=== PATIENT | female | born 1985 | race Caucasian/White ===

== ENCOUNTER 2017-09-16 15:27 | Inpatient (IN) ==
--- OUTSIDE RECORDS SUMMARY | 2017-09-16 15:38 | External Medical Summary | Continuity of Care Document ---
:1985 Author Organization [facility] Address [address] [place], [place] [address] Phone Care Team Providers Name Role Phone Dereck Castillo MD Unavailable Unavailable Allergies, Adverse Reactions, Alerts Substance Reaction Severity Status codeine severe stomach cramping Unknown Active Medications Medication Instructions Dosage Effective Dates Status Comments (start - stop) acyclovir 400 mg take 1 tablet by 400 MG - Active tablet oral route 3 times every day Tylenol 325 mg take 1 tablet by - Active tablet oral route every 4 hours as needed 27 mg-0.8 take 1 tablet by Not Available - Active mg tablet oral route every day as needed Problems Condition Effective Dates (start - stop) Clinical Status 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 Encounter for suprvsn of normal - , first trimester 13 weeks gestation of - Other viral diseases complicating - , first trimester Encntr screen for infections w sexl - mode of transmiss Encounter for screening for oth - infec/parastc diseases Encounter for test, result - positive Encounter for suprvsn of normal - , first trimester Encounter for screening of - mother 9 weeks gestation of - Hirsutism Irregular Menses Irregular Menses Irregular Menses - Palpitations 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 700 Provider: Van STILES, , first 7 Medical [facility] Box [id number] weeks Center Ever [place], 1522, gestation of Dr Ziggy Kim Bertrand, 120, Medical [facility] [id number], [place], [place]gy 120, [place] [id number] Oj, tel: , [place]. [place], tel: [phone]. [phone] tel:[phone] Associates [facility] Other viral Feb- Ever Referring In Womens diseases [place]. 700 Provider: Van STILES, complicating 7 Medical [facility] Box , first Center Ever [place], 1522, trimesterEncntr , [place] [address] Jerzy, screen for 120, Medical [place], infections w [facility]l [facility] [id number], mode of [place], Ziggy 120, [place] transmissEncounter [id number] Oj, tel: for screening for , [place]. [place] oth infec/parastc tel: [phone]. diseasesEncounter [phone] tel: for test, [id number] result positiveEncounter for suprvsn of normal , first trimesterEncounter for screening of mother9 weeks gestation of [facility] Irregular Menses December- Ever Referring In Womens [place]. 700 Provider: Van STILES, 7 [facility] Ever [place], 1522, Dr Ziggy Kim Bertrand, 120, Medical Oj LEMA, [place] [id number], [place], [place] 120, [place] [id number] Oj, tel: , [place]. [place], tel: [phone]. [id number] tel:[phone] [facility] Irregular Menses Apr-0 Ever In Womens [place]. 700 Health LINSEY, 7 [facility] PO Box Center Manuel, Ziggy Riley, 120, Oj LEMA, [id number], [place], [place] [id number] tel: , . tel: [phone] Ninfa Mcwilliams HirsutismIrregular Apr-0 Ever Referring In Womens Menses 4-201 [place]. 700 Provider: Van STILES, 7 [facility] Manuel Mitchell, , Ziggy Kim Bertrand, 120, Medical O[facility] [id number], [place], [place]gy 120, [place] [id number] Oj, tel: , [place]. [place] tel: [phone]. [phone] tel:[phone] Ninfa Mcwilliams PalpitationsEncntr Roderick-0 Ever Referring In Womens for corporate quality manager exam 3-201 [place]. 700 Provider: Van STILES, (general) (routine) 7 [facility] w abnormal findings [place] [address] Dr Ziggy Kim Bertrand, 120, Medical [facility] [id number], [place], [place]gy 120, [place] [id number] Oj, tel: , . [place] tel: [phone]. 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 700 Provider: Van STILES, w/o abn findings [address] [facility] [address] Ziggy Kim Bertrand, 120, Medical O[facility] [id number], [place], [place]gy 120, [place] [id number] Oj, tel: , . [place] tel: [phone]. [id number] tel:[phone] Ninfa Mcwilliams Fe-2 Ever Referring In Womens 0-201 [place]. 700 Provider: Van STILES, 4 [facility] Box [place] Manuel Mitchell, Ziggy Riley, 120, Medical Oj LEMA, [place] [id number], [place], Ziggy 120, [place] [id number] Oj, tel: , . [place], [address] tel: [phone]. [id number] tel:[phone] Family History Family Member Diagnosis Age At Onset Mother Diabetes mellitus Paternal Grandfather Cardiovascular Disease Maternal Grandfather Cardiovascular Disease Immunizations Vaccine Date Status Comments Unknown Payers Payer name Insurance type Covered alliance party ID Authorization(s) ANNELISE PATINO [id number] Social History Type Description Quantity Date Captured Alcohol Use Details No Caffeine Use Details Unknown Tobacco Use Status Unknown Smoking Status Never smoker Vital Signs Date / Height Weight BMI Pulse Blood Temperature Respiratory Body Head BMI Time: Rate Pressure Rate Surface Circumference percentile Area 187.50 37.8 lbs 7 mm[Hg] 4:16 kg/m PM eter (2) Chief Complaint And Reason For Visit Unknown Chief Complaint And Reason For Visit Reason For Referral Reason For Referral Unknown Plan Of Care Date Type Action Status Appointment Sierra Huitron BOOKED Future Order: Lab Order Pap Smear With HPV Reflex If ASCUS Ordered ([id number]) Date Type Problem Goal Intervention Status Start Date Unknown. History Of Present Illness Encounter Date Complaint History Of Present Illness This patient has no known history of present illness Functional Status Encounter Date Functional Assessment Cognitive Assessment Unknown Medications Administered Medication Instructions Dosage Effective Dates (start - stop) Status Comments Drug Treatment Unknown Instructions Date Instruction Additional Information toxoplasmosis precautions (cats / raw meat) sexual activity exercise indications for ultrasound influenza vaccine HIV and other routine tests risk factors identified by history anticipated course of care nutrition and weight gain counseling, special diet environmental / work hazards travel use of any medications (including supplements, vitamins, herbs, OTC drugs) seat belt use childbirth classes / hospital facilities hospital registration genetic testing Zika virus assessment & precautions
--- OUTSIDE RECORDS SUMMARY | 2017-09-16 15:38 | External Medical Summary | Continuity of Care Document ---
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 Encounter for suprvsn of normal - , first trimester 13 weeks gestation of - Encounter for suprvsn of normal - , second trimester 16 weeks gestation of - Encounter for suprvsn of normal - , second trimester Encounter For Screening For - Malformations 19 weeks gestation of - Active Procedures Procedure Date OB Visit No Charge Results Test Name Date and Time Measure Units Reference Range Abnormal Flag Comments Unknown Advance Directives Directive Yes / No Effective Date File Name Unknown Encounters Encounter Practice Location Reason(s) Diagnoses Date Provider Care Team Description For Visit Members Ninfa Mcwilliams Encounter for May- Ever Referring In Womens suprvsn of normal 5-201 [place]. 700 Provider: Health PR, , second 7 Medical [place] [address] [email or web address] weeks Center Ever R, 1522, gestation of Ziggy Riley, 120, Medical [facility] [id number], [facility] 120[facility] [place] [id number] Oj, tel:2 , [place]. [place], tel: [phone]. [id number] tel:[phone] Ninfa Mcwilliams Encounter for May- Ever Referring In Womens Ultrasound suprvsn of normal 5-201 [place]. 700 Provider: Health LINSEY, , second 7 Medical [facility] Box trimesterEncounte Center Ever R, 1522, r For Ziggy Riley, Screening For 120, Medical PITA, [id number] [facility] [id number], weeks gestation PITA [facility] 120, [place] [id number] Oj, tel:2 , [place]. [place], tel: [phone]. [id number] tel:[phone] Ninfa Mcwilliams Encounter for Apr- Ever Referring In Womens suprvsn of normal 4-201 [place]. 700 Provider: Health [place], , second 7 Medical [place] PO Box [email or web address] weeks Center Ever R, 1522, gestation of Ziggy Riley, 120, Medical O[facility] [id number], [place], Ziggy 120, [place] [id number] Oj, tel: , [place]. [place], tel: [phone]. [id number] tel:[phone] [facility] Encounter for Mar- Ever Referring In Womens suprvsn of normal [place]. 700 Provider: Health [place], , first 7 [facility] weeks Center Ever R, 1522, gestation of Ziggy Riley, 120, Medical O[facility] [id number], [place], Ziggy 120, [place] [id number] Oj, tel: , [place]. [place], tel: [phone]. [phone] tel:[phone] [facility] Other viral Feb- Ever Referring In Womens diseases - [place]. 700 Provider: Health PA, complicating 7 [facility] , first Center Ever R, 1522, trimesterEncntr [place] Riley, screen for 120, Medical [place], infections w sexl Oj, [place] [id number], mode of [place], [facility] 120, [place] transmissEncounte [id number] Oj, tel: r for screening , [place]. [place], for oth tel:[phone]. infec/parastc [phone] tel: diseasesEncounter [phone] for test, result positiveEncounter for suprvsn of normal , first trimesterEncounte r for screening of mother9 weeks gestation of [facility] Irregular Menses December- Ever Referring In Womens - [place]. 700 Provider: Health LINSEY, 7 [facility] Ever R, 1522, [place] Riley, 120, Medical Oj LEMA, [place] [id number], [place], Z[place]gy 120, [place] [id number] Oj, tel: , [place]. [place], tel: [phone]. [id number] tel:[phone] [facility] Irregular Menses Apr-0 Ever In Womens - [place]. 700 Health LINSEY, 7 [facility] Center 1522, Ziggy Riley, 120, Oj LEMA, [id number], [place], [place] [id number] tel: , [place]. tel: [phone] Ninfa Mcwilliams HirsutismIrregula Apr-0 Ever Referring In Womens r Menses 4-201 [place]. 700 Provider: Van STILES, 7 [facility] PO Box Center Ever [place], 1522, , Ziggy 700 [place], 120, Medical Oj [facility] [id number], [place], [place]iggy 120, [place] [id number] Oj, tel: , [place]. [place], tel: [phone]. [id number] tel:[phone] Associates [facility] PalpitationsEncnt Roderick-0 Ever Referring In Womens r for hair designer exam 3-201 [place]. 700 Provider: Van STILES, (general) 7 [facility] Box (routine) w Center Ever [place], 1522, abnormal findings Dr Ziggy Kim Bertrand, 120, Medical O[facility] [id number], [place], [place]gy 120, [place] [id number] Oj, tel: , [place]. [place], tel: [phone]. 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 700 Provider: Van STILES, (routine) w/o abn 5 [facility] Box findings Center Ever [place], 1522, , [place]ig[place] Kim Bertrand, 120, Medical O[facility] [id number], [place], [place]gy 120, [place] [id number] Oj, tel: , [place]. [place], tel: [phone]. [phone] tel:[phone] Ninfa Mcwilliams Feb-2 Ever Referring In Womens 0-201 [place]. 700 Provider: Van STILES, 4 [facility] PO Box Center Ever [place], 1522, , Ziggy 700 [place], 120, Medical Oj LEMA, [place] [id number], [place], Ziggy 120, [place] [id number] Oj, tel: , [place]. [place] tel: [phone]. [id number] tel:[phone] Family History Family Member Diagnosis Age At Onset Mother Diabetes mellitus Paternal Grandfather Cardiovascular Disease Maternal Grandfather Cardiovascular Disease Immunizations Vaccine Date Status Comments Unknown Payers Payer name Insurance type Covered republican ID Authorization(s) ANNELISE PATINO [id number] Social History Type Description Quantity Date Captured Alcohol Use Details No Caffeine Use Details Unknown Tobacco Use Status Unknown Smoking Status Never smoker Vital Signs Date / Height Weight BMI Pulse Blood Temperature Respiratory Body Head BMI Time: Rate Pressure Rate Surface Circumference percentile Area 185.90 37.5 139/84 2017 lbs 4 mm[Hg] 9:35 kg/m AM eter (2) Chief Complaint And Reason For Visit Unknown Chief Complaint And Reason For Visit Reason For Referral Reason For Referral Unknown Plan Of Care Date Type Action Status Appointment Sierra Huitron BOOKED Future Order: Lab Order Pap Smear With HPV Reflex If ASCUS Ordered (WPMPap1) Future Order: Radiology Order Complete OB Ultrasound > 14 Ordered Weeks ([id number]) Date Type Problem Goal Intervention Status Start [...]
--- OUTSIDE RECORDS SUMMARY | 2017-09-16 15:38 | External Medical Summary | Continuity of Care Document ---
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 Other viral diseases complicating - , first trimester Encntr screen for infections w sexl - mode of transmiss Encounter for screening for oth - infec/parastc diseases Encounter for test, result - positive Encounter for suprvsn of normal - , first trimester Encounter for screening of - mother 9 weeks gestation of - Hirsutism Irregular Menses Irregular Menses Irregular Menses - Palpitations 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 abnormal 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 Active Procedures Procedure Date Urine test Initial OB Visit 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 Infct antign, chlamydia trac, ampl Urine Culture OB Panel With An HIV Neisseria Gonorrhoeae, Amplification Venpnctr fngr/heel/ear stick routne Cult, bactr, ident isolate, urine Cult bactr, aerobic, addl methods Results Test Name Date and Time Measure Units Reference Range Abnormal Flag Comments Panel Description: OBSTETRIC PANEL WHITE BLOOD CELL 10.0 Thousand/uL 3.8-10.8 N COUNT 11:27:00 RED BLOOD CELL 4.23 Million/uL 3.80-5.10 N COUNT 11:27:00 HEMOGLOBIN 13.2 g/dL 11.7-15.5 N 11:27:00 HEMATOCRIT 38.7 % 35.0-45.0 N 11:27:00 MCV 91.5 fL 80.0-100.0 N 11:27:00 MCH 31.2 pg 27.0-33.0 N 11:27:00 MCHC 34.1 g/dL 32.0-36.0 N 11:27:00 RDW 12.5 % 11.0-15.0 N 11:27:00 PLATELET COUNT 412 Thousand/uL 140-400 H 11:27:00 MPV 9.0 fL 7.5-12.5 N 11:27:00 ABSOLUTE 7170 cells/uL 2791-2343 N NEUTROPHILS 11:27:00 ABSOLUTE 2030 cells/uL 850-3900 N LYMPHOCYTES 11:27:00 ABSOLUTE 710 cells/uL 200-950 N MONOCYTES 11:27:00 ABSOLUTE 50 cells/uL 15-500 N EOSINOPHILS 11:27:00 ABSOLUTE 40 cells/uL 0-200 N BASOPHILS 11:27:00 NEUTROPHILS 71.7 % N 11:27:00 LYMPHOCYTES 20.3 % N 11:27:00 MONOCYTES 7.1 % N 11:27:00 EOSINOPHILS 0.5 % N 11:27:00 BASOPHILS 0.4 % N 11:27:00 ANTIBODY SCREEN, NO ANTIBODIES N RBC W/REFL ID, 11:27:00 DETECTED Reference range TITER AND AG No antibodies detected This assay is a screening test for the detection of red blood cell antibodies. The test is not to be used for pretransfusion screening or for the medical management of an alloimmunized . ABO GROUP O 11:27:00 RH TYPE RH(D) 11:27:00 POSITIVE RPR (DX) W/REFL NON-REACTIVE NON-REACTIV N TITER AND 11:27:00 E CONFIRMATORY TESTING HEPATITIS B NON-REACTIVE NON-REACTIV N SURFACE ANTIGEN 11:27:00 E RUBELLA ANTIBODY <0.90 index L Index (IGG) 11:27:00 Interpretation ----- <0.90 Not consistent with Immunity 0.90-0.99 Equivocal > or=1.00 Consistent with Immunity The presence of rubella IgG antibody suggests immunization or past or current infection withrubella virus.Test performed at [facility] [id number] [place] [address]Upyvlaq r: RAMON BORJA DO,MPH Panel Description: HIV 1/2 ANTIGEN/ANTIBODY,FOURTH GENERATION W/RFL HIV NON-REACTIVE NON-REACTIVE N HIV-1 antigen and HIV-1/HIV- 2 antibodies were AG/AB, 11:27:00 notdetected. There is no laboratory evidence of 4TH GEN HIVinfection. PLEASE NOTE: This information has been disclosed toyou from records whose confidentiality may beprotected by state law. If your state requires suchprotection, then the state law prohibits you frommaking any further disclosure of the informationwithout the specific written consent of the personto whom it pertains, or as otherwise permitted by law.A general authorization for the release of medical orother information is NOT sufficient for this purpose. For additional information please refer tohttp://education.Cubicle/faq/VBO979(This link is being provided for informational/educational purposes only.) The performance of this assay has not been clinicallyvalidated in patients less than 2 years old. Test performed at [facility] [address] [id number]: RAMON BORJA DO,MPH Panel Description: Bacteria identified in Urine by Culture CULTURE, URINE, 11:25:00 SEE NOTE A CULTURE, URINE, ROUTINE ROUTINE MICRO NUMBER: [id number] TEST STATUS: FINAL SPECIMEN SOURCE: URINE, CLEAN CATCH SPECIMEN QUALITY: ADEQUATE RESULT: 1,000-10,000 CFU/mL of Group B Streptococcus isolated Beta-hemolytic Streptococci are predictably susceptible to penicillin and other beta-lactams. Susceptibility testing not routinely performed. COMMENT: Erythromycin and clindamycin are not recommended for treatment of urinary tract infections, but clindamycin may be useful for treatment of rectovaginal colonization or infection. Any amount of group B Streptococcus in urine specimens obtained from females is a marker of genital tract colonization. If this patient is , please refer to ACOG guidelines for appropriate screening and management of women. COMMENT: Additional organism(s) less than 10,000 CFU/mL isolated. These organisms, commonly found on external and internal genitalia, are considered colonizers. No further testing performed.REPORT COMMENT:RTest performed at [facility] [address] [id number]: RAMON BORJA DO,MPH Panel Description: CHLAMYDIA/N. GONORRHOEAE RNA, TMA CHLAMYDIA NOT DETECTED NOT DETECTED N TRACHOMATIS RNA, 11:11:00 TMA NEISSERIA NOT DETECTED NOT DETECTED N GONORRHOEAE RNA, 11:11:00 TMA [id number] SEE NOTE This test was 11:11:00 performed using the APTIMA COMBO2 Assay([employer] The analytical performance characteristics of this assay, when used to test SurePath specimens havebeen determined by [place]. Test performed at [facility] [address] [id number]: RAMON BORJA DO,MPH Panel Description: Pap Smear With HPV Reflex If ASCUS Document Advance Directives Directive Yes / No Effective Date File Name Unknown Encounters Encounter Practice Location Reason(s) Diagnoses Date Provider Care Team Description For Visit Members [facility] Other viral Feb- Ever Referring In Womens diseases - [place]. 700 Provider: Van STILES, complicating 7 [facility] , first Center Ever [place], 1522, trimesterEncntr , [place] [address] Jerzy, screen for 120, Medical [place], [facility]l [facility] [id number], mode of [place], [facility] 120, [place] transmissEncounter [id number] Oj, tel: for screening for , [place]. [place], oth infec/parastc tel:[phone]. diseasesEncounter [id number] tel: for test, [id number] result positiveEncounter for suprvsn of normal , first trimesterEncounter for screening of mother9 weeks gestation of Associates Oj Irregular Menses December- Ever Referring In Womens 2-201 [place]. 700 Provider: Van STILES, 7 [facility] Ever [place], 1522, Dr [facility] Kim Bertrand, 120, Medical Oj [facility] [id number], [place], [facility] 120, [place] [id number] Oj, tel: , [place]. [place] tel: [phone]. [id number] tel:[phone] Associates [facility] Irregular Menses Apr-0 Ever In Womens 7-201 [place]. 700 Van STILES, 7 [facility] [address]Dr Ziggy Jerzy, [facility], TXOj [id number], [place], [place] [id number] tel: , [place]. tel: [phone] Associates [facility] HirsutismIrregular Apr-0 Ever Referring In Womens Menses 4-201 [place]. 700 Provider: Van STILES, 7 [facility] Ever [place], 1522, [place] Riley, 120, Medical Oj [facility] [id number], [place], Ziggy 120, [place] [id number] Oj, tel: , [place]. [place] tel: [phone]. [id number] tel:[phone] Ninfa Mcwilliams PalpitationsEncntr Ever Referring In Womens for glove cleaner exam 3-201 [place]. 700 Provider: Van STILES, (general) (routine) 7 [facility] w abnormal findings [place] Manuel Mitchell, , [place], 120, Medical PITA [facility] [id number], [place], [place] 120, [place] [id number] Oj, tel: , . [place], tel: [phone]. 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 700 Provider: Van STILES, w/o abn findings 5 [facility] Manuel Mitchell, , [place], 120, Medical [facility] [id number], [place], Ziggy 120, [place] [id number] Oj, tel: , . [place], tel: [phone]. [id number] tel:[phone] Ninfa Mcwilliams 2 Ever Referring In Womens 0-201 [place]. 700 Provider: Van STILES, 4 [facility] [address] [place] [address] [place], 120, Medical Oj [facility] [id number], [place], Ziggy 120, [place] [id number] Oj, tel: , [facility], tel: [phone]. [id number] tel:[phone] Family History Family Member Diagnosis Age At Onset Mother Diabetes mellitus Paternal Grandfather Cardiovascular Disease Maternal Grandfather Cardiovascular Disease Immunizations Vaccine Date Status Comments Unknown Payers Payer name Insurance type Covered green party ID Authorization(s) DAYAN LEMA [id number] Social History Type Description Quantity Date Captured Alcohol Use Details No Caffeine Use Details coffee 2 cups per day Tobacco Use Status Never smoked tobacco Smoking Status Never smoker Vital Signs Date / Height Weight BMI Pulse Blood Temperature Respiratory Body Head BMI Time: Rate Pressure Rate Surface Circumference percentile Area 187.00 37.7 112/79 -2017 lbs 7 mm[Hg] 10:36 kg/m AM eter (2) 377 9 10:29 kg/m AM eter (2) Chief Complaint And [...]
--- OUTSIDE RECORDS SUMMARY | 2017-09-16 15:38 | External Medical Summary | Continuity of Care Document ---
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 700 Provider: Health [place], , second 7 Medical [place] [address] [id number] weeks Center Ever R, 1522, gestation of Ziggy Riley, 120, Medical [facility] [id number], [facility] 120, [place] [id number] Oj, tel:2 , [place]. [place], tel: [phone]. [id number] tel:[phone] Ninfa Mcwilliams Encounter for May- Ever Referring In Womens Ultrasound suprvsn of normal 5-201 [place]. 700 Provider: Health LINSEY, , second 7 Medical [facility] Box trimesterEncounte Center Ever R, 1522, r For Ziggy Riley, Screening For 120, Medical PITA, [id number] [facility] [id number], weeks gestation PITA [facility] 120, [place] [id number] Oj, tel:2 , [place]. [place], tel: [phone]. [id number] tel:[phone] Ninfa Mcwilliams Encounter for Apr- Ever Referring In Womens suprvsn of normal 4-201 [place]. 700 Provider: Health [place], , second 7 Medical [place] [address] [id number] weeks Center Ever R, 1522, gestation of Ziggy Riley, 120, Medical O[facility] [id number], [place], Ziggy 120, [place] [id number] Oj, tel: , [place]. [place], tel: [phone]. [id number] tel:[phone] Associates Oj Encounter for Mar- Ever Referring In Womens suprvsn of normal [place]. 700 Provider: Health [place], , first 7 [facility] [id number] weeks Center Ever R, 1522, gestation of Ziggy Riley, 120, Medical O[facility] [id number], [place], [place]iggy 120, [place] [id number] Oj, tel: , [place]. [place], tel: [phone]. [id number] tel:[phone] Associates Oj Other viral Feb- Ever Referring In Womens diseases - [place]. 700 Provider: Health [place], complicating 7 [facility] , first Center Ever R, 1522, trimesterEncntr [place] Riley, screen for 120, Medical [place], infections w sexl Oj, [place] [id number], mode of [place], [facility] 120, [place] transmissEncounte [id number] Oj, tel: r for screening , [place]. [place], for oth tel:[phone]. infec/parastc [id number] tel: diseasesEncounter [phone] for test, result positiveEncounter for suprvsn of normal , first trimesterEncounte r for screening of mother9 weeks gestation of Associates Oj Irregular Menses December- Ever Referring In Womens - [place]. 700 Provider: Health LINSEY, 7 [facility] Ever R, 1522, [place]gy Riley, 120, Medical Oj LEMA, [place] [id number], [place], [place]gy 120, [place] [id number] Oj, tel: , [place]. [place], tel: [phone]. [id number] tel:[phone] Associates [facility] Irregular Menses Apr-0 Veer In Womens - [place]. 700 Health LINSEY, 7 [facility] 1522, [place] Riley, 120, Oj LEMA, [id number], [place], [place] [id number] tel: , [place]. tel: [phone] Ninfa Mcwilliams HirsutismIrregula Apr-0 Ever Referring In Womens r Menses 4-201 [place]. 700 Provider: Van STILES, 7 [facility] PO Box Center Ever [place], 1522, , Ziggy 700 [place], 120, Medical Oj [facility] [id number], [place], [place] 120, [place] [id number] Oj, tel: , [place]. [place], tel: [phone]. [id number] tel:[phone] Associates Oj PalpitationsEncnt Roderick-0 Ever Referring In Womens r for urogynecology physician exam 3-201 [place]. 700 Provider: Van STILES, (general) 7 [facility] Box (routine) w Center Ever [place], 1522, abnormal findings Dr Ziggy Kim Bertrand, 120, Medical Oj [facility] [id number], [place], Ziggy 120, [place] [id number] Oj, tel: , [place]. [place], tel: [phone]. [id number] tel:[phone] Ninfa Mcwilliams Encntr for urogynecology physician Nov- Ever Referring In Womens exam (general) 0-201 [place]. 700 Provider: Van STILES, (routine) w/o abn 5 [facility] Box findings Center Ever [place], 1522, , Ziggy Kim Bertrand, 120, Medical Oj [facility] [id number], [place], Z[place]gy 120, [place] [id number] Oj, tel: , [place]. [place], tel: [phone]. [id number] tel:[phone] Ninfa Mcwilliams Feb-2 Ever Referring In Womens 0-201 [place]. 700 Provider: Van STILES, 4 [facility] PO Box Center Ever [place], 1522, , Ziggy 700 [place], 120, Medical Oj LEMA, [place] [id number], [place], Ziggy 120, [place] [id number] Oj, tel: , [place]. [place] tel: [phone]. [id number] tel:[phone] Family History Family Member Diagnosis Age At Onset Mother Diabetes mellitus Paternal Grandfather Cardiovascular Disease Maternal Grandfather Cardiovascular Disease Immunizations Vaccine Date Status Comments Unknown Payers Payer name Insurance type Covered constitution party ID Authorization(s) ANNELISE PATINO [id number] Social History Type Description Quantity Date Captured [...] Complete OB Ultrasound > 14 Ordered Weeks (20655) Date Type Problem Goal Intervention Status Start [...]
--- OUTSIDE RECORDS SUMMARY | 2017-09-16 15:38 | External Medical Summary | Continuity of Care Document ---
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) (routine) w abnormal findings Encounter for suprvsn of normal - , first trimester 13 weeks gestation of - Encounter for suprvsn of normal - , second trimester 16 weeks gestation of - Encounter for suprvsn of normal - , second trimester 19 weeks gestation of - Active Procedures Procedure Date Ultrasound exam of preg uterus, complete Results Test Name Date and Time Measure Units Reference Range Abnormal Flag Comments Unknown Advance Directives Directive Yes / No Effective Date File Name Unknown Encounters Encounter Practice Location Reason(s) Diagnoses Date Provider Care Team Description For Visit Members Ninfa Mcwilliams Encounter for May- Ever Referring In Womens suprvsn of normal 5-201 [place]. 700 Provider: Health LINSE[place], , second 7 Medical [place] PO Box weeks Center Ever R, 1522, gestation of Ziggy Riley, 120, Medical [facility] [id number], [place], Ziggy 120, [place] [id number] Oj, tel:2 , [place]. [place], tel: [phone]. [id number] tel:[phone] Ninfa Mcwilliams Encounter for May- Ever Referring In Womens Ultrasound suprvsn of normal 5-201 [place]. 700 Provider: Health LINSEY, , second 7 Medical [facility] Box trimesterEncounte [place] Ever R, 1522, r For Ziggy Riley, Screening For 120, Medical PITA, [id number] [facility] [id number], weeks gestation PITA [facility] 120, [place] [id number] Oj, tel:2 , [place]. [place], tel: [phone]. [id number] tel:[phone] Ninfa Mcwilliams Encounter for Apr- Ever Referring In Womens suprvsn of normal 4-201 [place]. 700 Provider: Health LINSEY, , second 7 Medical [place] PO Box [id number] weeks Center Ever R, 1522, gestation of Ziggy Riley, 120, Medical Oj LEMA [place] [id number], [place], [place]gy 120, [place] [id number] Oj, tel: , [place]. [place] tel: [phone]. [id number] tel:[phone] Associates Oj Encounter for Mar-2 Ever Referring In Womens suprvsn of normal [place]. 700 Provider: Health [place], , first 7 [facility] [id number] weeks Center Ever [place], 1522, gestation of Ziggy Riley, 120, Medical Oj LEMA, [place] [id number], [place], [place] 120, [place] [id number] Oj, tel: , [place]. [place], tel: [phone]. [id number] tel:[phone] Associates Oj Other viral Feb- Ever Referring In Womens diseases - [place]. 700 Provider: Health LINSEY, complicating 7 [facility] , first Center Ever R, 1522, trimesterEncntr Dr [facility] Kim Bertrand, screen for 120, Medical [place], infections w sexl Oj, [place] [id number], mode of [place], [place] 120, [place] transmissEncounte [id number] Oj, tel: r for screening , [place]. [place] for oth tel:[phone]. infec/parastc [id number] tel: diseasesEncounter [phone] for test, result positiveEncounter for suprvsn of normal , first trimesterEncounte r for screening of mother9 weeks gestation of Associates Oj Irregular Menses December- Ever Referring In Womens - [place]. 700 Provider: Health LINSEY, 7 [facility] Center Ever R, 1522, [place] Riley, 120, Medical Oj LEMA, [place] [id number], [place], [place] 120, [place] [id number] Oj, tel: , [place]. [place] tel: [phone]. [id number] tel:[phone] Associates [facility] Irregular Menses Apr-0 Ever In Womens [place]. 700 Health LINSEY, 7 [facility] Center 1522, [place] Riley, 120, Oj LEMA, [id number], [place], [place] [id number] tel: , [place]. tel: [phone] Associates O[facility] HirsutismIrregula Apr-0 Ever Referring In Womens r Menses 4-201 [place]. 700 Provider: Van STILES, 7 [facility] PO Box Center Ever [place], 1522, , Ziggy 700 [place], 120, Medical Oj [facility] [id number], [place], [place] 120, [place] [id number] Oj, tel: , [place]. [place], tel: [phone]. [id number] tel:[phone] Associates O[facility] PalpitationsEncnt Roderick-0 Ever Referring In Womens r for records officer exam 3-201 [place]. 700 Provider: Van STILES, (general) 7 [facility] Box (routine) w Center Ever [place], 1522, abnormal findings , [place] Kim Bertrand, 120, Medical Oj [facility] [id number], [place], [place] 120, [place] [id number] Oj, tel: , [place]. [place] tel: [phone]. [id number] tel:[phone] Associates O[facility] Encntr for records officer Nov- Ever Referring In Womens exam (general) 0-201 [place]. 700 Provider: Van STILES, (routine) w/o abn 5 [facility] PO Box findings [place] Ever [place], 1522, , [place] Kim Bertrand, 120, Medical Oj [facility] [id number], [place], [place] 120, [place] [id number] Oj, tel: , [place]. [place], tel: [phone]. [id number] tel:[phone] Ninfa Mcwilliams Feb-2 Ever Referring In Womens 0-201 [place]. 700 Provider: Van STILES, 4 [facility] PO Box [place] Ever [place], 1522, , [place] Kim Bertrand, 120, Medical Oj LEMA, [place] [id number], [place], [place] 120, [place] [id number] Oj, tel: , [place]. [place] tel: [phone]. [id number] tel:[phone] Family History Family Member Diagnosis Age At Onset Mother Diabetes mellitus Paternal Grandfather Cardiovascular Disease Maternal Grandfather Cardiovascular Disease Immunizations Vaccine Date Status Comments Unknown Payers Payer name Insurance type Covered democrat ID Authorization(s) ANNELISE PATINO [id number] Social History Type Description Quantity Date Captured Unknown Vital Signs Date / Height Weight BMI Pulse Blood Temperature Respiratory Body Head BMI Time: Rate Pressure Rate Surface Circumference percentile Area Unknown Chief Complaint And Reason For Visit Unknown Chief Complaint And Reason For Visit Reason For Referral Reason For Referral Unknown Plan Of Care Date Type Action Status Appointment [facility] BOOKED Future Order: Radiology Order Complete OB Ultrasound > 14 Ordered Weeks (80169) Future Order: Lab Order Pap Smear With [...]
--- OUTSIDE RECORDS SUMMARY | 2017-09-16 15:39 | External Medical Summary | Continuity of Care Document ---
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 700 Provider: Health LINSEY, , second 7 Medical [place] PO [address] [id number] weeks Center Ever R, 1522, gestation of Ziggy Riley, 120, Medical [facility] [id number], [place], [place]iggy 120, [place] [id number] Oj, tel: , [place]. [place], tel: [phone]. [id number] tel:[phone] Ninfa Mcwilliams Encounter for Ever Referring In Womens suprvsn of normal 2-201 [place]. 700 Provider: Health LINSEY, , first 7 Medical [place] PO Box [id number] weeks Center Ever R, 1522, gestation of Ziggy Riley, 120, Medical Oj [facility] [id number], [place], [place] 120, [place] [id number] Oj, tel: , [place]. [place], tel: [phone]. [id number] tel:[phone] Ninfa Mcwilliams Other viral Feb- Ever Referring In Womens diseases 5-201 [place]. 700 Provider: Health LINSEY, complicating 7 Medical [place] PO Box , first Center Ever R, 1522, trimesterEncntr Dr [place] Kim Bertrand, screen for 120, Medical [place], infections w sexl [facility] [id number], mode of PITA, [facility] 120, [place] transmissEncounter [id number] Oj, tel: for screening for , [place]. [place], oth infec/parastc tel: [phone]. diseasesEncounter [phone] tel: for test, [id number] result positiveEncounter for suprvsn of normal , first trimesterEncounter for screening of mother9 weeks gestation of Associates Oj Irregular Menses May-1 Ever Referring In Womens 2-201 [place]. 700 Provider: Van STILES, 7 [facility] Ever [place], 1522, , Ziggy 700 [place], 120, Medical Oj [facility] [id number], [place], [facility] 120, [place] [id number] Oj, tel: , [place]. [place] tel: [phone]. [id number] tel:[phone] Associates [facility] Irregular Menses Apr-0 Ever In Womens 7-201 [place]. 700 Van STILES, 7 [facility] 152Anette, , [place], 120, Oj LEMA, [id number], [place], [place] [id number] tel:+ , [place]. tel: [phone] Associates [facility] HirsutismIrregular Apr-0 Ever Referring In Womens Menses 4-201 [place]. 700 Provider: Van STILES, 7 [facility] Chuyita Mitchell2, , [place] Kim Bertrand, 120, Medical [facility] [id number], [place], [place]iggy 120, [place] [id number] Oj, tel: , [place], tel:[phone]. [id number] tel:[phone] Associates Oj PalpitationsEncntr Roderick-0 Ever Referring In Womens for sports statistician exam 3- [place]. 700 Provider: Van STILES, (general) (routine) 7 [facility] w abnormal findings Center Chuyita Mitchell2, , [place] Kim Bertrand, 120, Medical Oj [facility] [id number], [place], [place] 120, [place] [id number] Oj, tel: , [place]. [place] tel: [phone]. [id number] tel:[phone] Associates [facility] Encntr for sports statistician exam Nov-1 Ever Referring In Womens (general) (routine) 0-201 [place]. 700 Provider: Van STILES, w/o abn findings 5 [facility] [address], [place] 700 [place], 120, Medical PITA [facility] [id number], [place], [facility] 120, [place] [id number] Oj, tel: , [facility], tel: [phone]. [id number] tel:[phone] Ninfa Mcwilliams Sep- Ever Referring In Womens 0-201 [place]. 700 Provider: [facility], 4 [facility] [address], [place] 700 [place], 120, Medical [facility] [id number], [place], [facility] 120, [place] [id number] Oj, tel: , [facility], tel: [phone]. [id number] tel:[phone] Family History Family Member Diagnosis Age At Onset Mother Diabetes mellitus Paternal Grandfather Cardiovascular Disease Maternal Grandfather Cardiovascular Disease Immunizations Vaccine Date Status Comments Unknown Payers Payer name Insurance type Covered alliance party ID Authorization(s) [facility] [id number] Social History Type Description Quantity Date Captured Alcohol Use Details No Caffeine Use Details Unknown Tobacco Use Status Unknown Smoking Status Never smoker Vital Signs Date / Height Weight BMI Pulse Blood Temperature Respiratory Body Head BMI Time: Rate Pressure Rate Surface Circumference percentile Area 184.00 37.1 lbs 6 mm[Hg] 8:37 kg/m AM eter (2) Chief Complaint And Reason For Visit Unknown Chief Complaint And Reason For Visit Reason For Referral Reason For Referral Unknown Plan Of Care Date Type Action Status Appointment [facility] BOOKED Appointment [facility] BOOKED Future Order: Lab [...]
--- OUTSIDE RECORDS SUMMARY | 2017-09-16 15:39 | External Medical Summary | Continuity of Care Document ---
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) (routine) w abnormal findings Encounter for suprvsn of normal - , first trimester 13 weeks gestation of - Encounter for suprvsn of normal - , second trimester 16 weeks gestation of - Encounter for suprvsn of normal - , second trimester 24 weeks gestation of - Encounter for suprvsn of normal - , second trimester Encounter For Screening For - Malformations 19 weeks gestation of - Encounter for suprvsn of normal - , second trimester 27 weeks gestation of - Encounter for suprvsn of normal - , second trimester 19 weeks gestation of - Encounter for suprvsn of normal - , third trimester 31 weeks gestation of - Active Procedures Procedure Date OB Visit No Charge Results Test Name Date and Time Measure Units Reference Range Abnormal Flag Comments Unknown Advance Directives Directive Yes / No Effective Date File Name Unknown Encounters Encounter Practice Location Reason(s) Diagnoses Date Provider Care Team Description For Visit Members Ninfa Mcwilliams Encounter for Jul- Ever Referring In Womens suprvsn of normal 8-201 [place]. 700 Provider: Health LINSEY, , third 7 Medical [place] [address] [email or web address] weeks [place] Ever R, 1522, gestation of Z[place]gy Riley, 120, Medical [facility] [id number], [place], [facility] 120, [place] [id number] Oj, tel: , [facility], tel: [phone]. [id number] tel:[phone] Ninfa Mcwilliams Encounter for Jul- Ever Referring In Womens suprvsn of normal 4-201 [place]. 700 Provider: Health LINSEY, , third 7 Medical [place] PO Box [email or web address] weeks [place] Ever R, 1522, gestation of Ziggy Rileyta, 120, Medical [facility] [id number], [place], [place] 120, [place] [id number] Oj, tel: , [facility] tel: [phone]. [id number] tel:[phone] Ninfa Mcwilliams Encounter for Nov-3 Ever Referring In Womens suprvsn of normal 0-201 [place]. 700 Provider: Health [place], , second 7 Medical [place] PO Box [email or web address] weeks Center Ever R, 1522, gestation of [place]gy Riley, 120, Medical [facility] [id number], [place], [place] 120, [place] [id number] Oj, tel: , [place]. [place], tel: [phone]. [id number] tel:[phone] Ninfa Mcwilliams Encounter for Nov-0 Ever Referring In Womens suprvsn of normal 3-201 [place]. 700 Provider: Health LINSEY, , second 7 Medical [place] PO Box [email or web address] weeks Center Ever R, 1522, gestation of [place]gy Riley, 120, Medical [facility] [id number], [place], [place] 120, [place] [id number] Oj, tel: , [place] tel: [phone]. [id number] tel:[phone] Ninfa Mcwilliams Encounter for Oct-0 Ever Referring In Womens suprvsn of normal 5-201 [place]. 700 Provider: Health LINSEY, , second 7 Medical [place] PO Box [email or web address] weeks Center Ever R, 1522, gestation of [place]gy Riley, 120, Medical [facility] [id number], [place], [place] 120, [place] [id number] Oj, tel: , [place] tel: [phone]. [id number] tel:[phone] Ninfa Mcwilliams Encounter for Oct-0 Ever Referring In Womens Ultrasound suprvsn of normal 5-201 [place]. 700 Provider: Health LINSEY, , second 7 Medical [place] PO Box trimesterEncounte Center Ever R, 1522, r For Ziggy Riley, Screening For 120, Medical [place], [id number] [facility] [id number], weeks gestation [place] 120, [place] [id number] Oj, tel: , [place] tel: [phone]. [id number] tel:[phone] Ninfa Mcwilliams Encounter for Sep- Ever Referring In Womens suprvsn of normal [place]. 700 Provider: Health LINSEY, , second 7 Medical [place] PO Box [email or web address] weeks Center Ever R, 1522, gestation of Ziggy Riley, 120, Medical [facility] [id number], [place], [facility] 120, [place] [id number] Oj, tel: , [place], tel: [phone]. [id number] tel:[phone] Ninfa Mcwilliams Encounter for Aug- Ever Referring In Womens suprvsn of normal [place]. 700 Provider: Health LINSEY, , first 7 Medical [facility] Box [email or web address] weeks Center Ever R, 1522, gestation of Ziggy Riley, 120, Medical [facility] [id number], [place], [facility] 120, [place] [id number] Oj, tel: , [place], tel: [phone]. [id number] tel:[phone] Associates [facility] Other viral Feb- Ever Referring In Womens diseases [place]. 700 Provider: Van STILES, complicating 7 Medical [facility] Box , first Center Ever R, 1522, trimesterEncntr [place]gy Riley, screen for 120, Medical [place], [facility]l [facility] [id number], mode of [place], [facility] 120, [place] transmissEncounte [id number] Oj, tel: r for screening , [place]. [place] for oth tel: [phone]. infec/parastc [id number] tel: diseasesEncounter [phone] for test, result positiveEncounter for suprvsn of normal , first trimesterEncounte r for screening of mother9 weeks gestation of [facility] Irregular Menses December- Ever Referring In Womens [place]. 700 Provider: Van STILES, 7 Medical [facility] Box Center Ever R, 1522, [place]gy Riley, 120, Medical [facility] [id number], [place], [place] 120, [place] [id number] Oj, tel: , [place] tel:[phone]. [id number] tel:[phone] [facility] Irregular Menses Apr-0 Ever In Womens 7-201 [place]. 700 Health [place], 7 [facility] PO Box Center 1522, , Ziggy Bertrand, 120, DCOj, [id number], [place], [place] [id number] tel:+ , [place]. tel: [phone] [facility] HirsutismIrregula Apr-0 Ever Referring In Womens r Menses 4-201 [place]. 700 Provider: Health [place], 7 [facility] PO Box Center Ever R, 1522, , Ziggy Bertrand, 120, Medical [facility] [id number], [place], [place] 120, [place] [id number] Oj, tel: , [place] tel:[phone]. [id number] tel:[phone] [facility] PalpitationsEncnt Roderick-0 Ever Referring In Womens r for dry room operator exam 3-201 [place]. 700 Provider: Health [place], (general) 7 [facility] PO Box (routine) w Center Ever R, 1522, abnormal findings [place] Riley, 120, Medical [facility] [id number], [place], [place] 120, [place] [id number] Oj, tel: , [place] tel: [phone]. 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 700 Provider: Health [place], (routine) w/o abn 5 [facility] PO Box findings Center Ever R, 1522, , [place] Deal[place], 120, Medical [facility] [id number], [place], [place] 120, [place] [id number] Oj, tel: , . [place] tel:[phone]. [id number] tel:[phone] Ninfa Mcwilliams Sep- Ever Referring In Womens 0-201 [place]. 700 Provider: Health LINSEY, [address] [place] [address] Ever [place], 1522, , Ziggy 700 [place], [facility], [facility], [facility] [id number], [place], [facility] 120, [id number] Oj, tel: , . [place], [address] tel: [phone]. [id number] tel:[phone] Family History Family Member Diagnosis Age At Onset Mother Diabetes mellitus Paternal Grandfather Cardiovascular Disease Maternal Grandfather Cardiovascular Disease Immunizations Vaccine Date Status Comments Unknown Payers Payer name Insurance type Covered republican ID Authorization(s) [facility] [id number] Social History Type Description Quantity Date Captured [...] Sierra Huitron BOOKED Appointment Sierra Huitron BOOKED Appointment Sierra Huitron BOOKED Future Order: Lab Order Pap Smear With HPV Reflex If ASCUS Ordered ([id number]) Future Order: Radiology Order Complete OB Ultrasound > 14 Ordered Weeks ([id number]) Date Type Problem Goal Intervention Status Start [...]
--- OUTSIDE RECORDS SUMMARY | 2017-09-16 15:39 | External Medical Summary | Continuity of Care Document ---
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 700 [facility], 7 [facility] [address] [place] [address], Zig[place] Riley, 120, [place], [place], [id number], [place], [place] [id number] tel: , . tel: [phone] [facility] Other viral Feb-2 Ever Referring In Womens diseases 5-201 [place]. 700 Provider: Van STILES, complicating 7 [facility] , first Center Ever [place], 1522, trimesterEncntr Dr [facility] Kim Bertrand, screen for 120, Medical [place], [facility] [place] , mode of [place], [place] 120, [place] transmissEncounter [id number] Oj, tel: for screening for , [place]. [place] oth infec/parastc tel:[phone]. diseasesEncounter [id number] tel: for test, [id number] result positiveEncounter for suprvsn of normal , first trimesterEncounter for screening of mother9 weeks gestation of [facility] Irregular Menses December- Ever Referring In Womens 2-201 [place]. 700 Provider: Van STILES, 7 [facility] Ever [place] 1522, [facility] Kim Bertrand, 120, Medical [address] [id number], [place], [place] 120, [place] [id number] Oj, tel: , [place]. [place], tel: [phone]. [id number] tel:[phone] [facility] Irregular Menses Apr-0 Ever In Womens 7-201 [place]. 700 Health LINSEY, 7 [facility] Box [place] [address], [place] Riley, 120, Oj LEMA, , [place], [place] [id number] tel: , [place]. tel: [phone] Ninfa Mciwlliams HirsutismIrregular Apr-0 Ever Referring In Womens Menses 4-201 [place]. 700 Provider: Van STILES, 7 [facility] [address], [place] 700 [place], 120, Medical [facility] [place] [id number], [place], [facility] 120, [place] [id number] Oj, tel: , [place]. [place], tel: [phone]. [id number] tel:[phone] Ninfa Mcwilliams PalpitationsEncntr Roderick-0 Ever Referring In Womens for acoustic sensor operator exam 3-201 [place]. 700 Provider: Van STILES, (general) (routine) 7 [facility] w abnormal findings [place] [address], [place] 700 [place], 120, Medical [facility] [place] [id number], [place], [facility] 120, [place] [id number] Oj, tel: , [place], tel: [phone]. 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 700 Provider: Van STILES, w/o abn findings 5 [facility] [address], [place] 700 [place], 120, Medical [facility] [id number], [place], [facility] 120, [place] [id number] Oj, tel: , [place]. [place], tel: [phone]. [id number] tel:[phone] Ninfa Mcwilliams Sep-2 Ever Referring In Womens 0-201 [place]. 700 Provider: Van STILES, 4 [facility] [address] [place] 700 [place], 120, Medical O[facility] [id number], [place], [place] 120, [place] [id number] Oj, tel: , . [place] tel: [phone]. [id number] tel:[phone] Family History Family Member Diagnosis Age At Onset Mother Diabetes mellitus Paternal Grandfather Cardiovascular Disease Maternal Grandfather Cardiovascular Disease Immunizations Vaccine Date Status Comments Unknown Payers Payer name Insurance type Covered constitution party ID Authorization(s) ANNELISE PATINO [id number] Social History Type Description Quantity Date Captured [...]
--- OUTSIDE RECORDS SUMMARY | 2017-09-16 15:39 | External Medical Summary | Continuity of Care Document ---
:1985 Author Organization [facility] Allergies Active Description Code Type Severity Reaction Onset Reported/ Identified Relationship Clinical to Patient Status Yes codeine 1550 1 N/A severe stomach cramping Medications Medication Packaging Start Date Stop Date Route Dosage Sig Tablet 02/02/2015 08/05/2016 NOR-Q-D take 1 tablet by oral route every day JUNE Tablet 06/20/2015 08/05/2016 FE take 1 tablet by oral route every day Tablet 11/05/2016 12/20/2016 CLOMIPHENE take 1 CITRATE Tablet by Oral route every day CD 3-7 Tablet 12/20/2016 02/10/2017 CLOMIPHENE take 1 CITRATE Tablet by Oral route every day CD 3-7 Tablet 02/10/2017 TYLENOL take 1 tablet by oral route every 4 hours as needed Tablet 02/25/2017 ACYCLOVIR take 1 tablet by oral route 3 times every day Tablet 03/04/2017 03/08/2017 AMOXICILLIN take 1 tablet by ORAL route 3 times every day for 7 days Problems Date Dx Attending Type Code Diagnosis Diagnosed By Coded 05/08/2017 Albin Curtis Z34.82 Encounter for suprvsn of normal , second trimester 05/08/2017 Albin Curtis Z36.3 Encounter For Screening For Malformations 05/08/2017 Albin Curtis Z3A.19 19 weeks gestation of 08/18/2017 Maya Thorne O43.123 Velamentous insertion of umbilical cord, third trimester 08/18/2017 Maya Thorne34.83 Encounter for suprvsn of normal , third trimester 08/18/2017 Maya Thorne3A.34 34 weeks gestation of 08/28/2017 Albin Curtis O43.123 Velamentous insertion of umbilical cord, third trimester 08/28/2017 Albin Curtis O44.43 Low Lying Placenta Nos Or W/out Hemorrhage, Third Trimester 08/28/2017 Albin Curtis Z3A.35 35 weeks gestation of Procedures Code Description [place] [address] Ultrasnd 05/08/2017 exam of preg uterus, compl 35539 OB Visit No 08/18/2017 Charge [id number] Ultrasnd 08/28/2017 preg uterus, flwup/repeat Results There is no data. Encounters ACCT No. Visit Discharge Status Pt. Type Provider Facility Loc./Unit Complaint Date/Time [id number] 09/05/2017 09/05/2017 CLS Outpatient Ever, 14:00:00 23:59:59 Albin [place] [id number] 08/28/2017 08/28/2017 CLS Outpatient Ever, 09:00:00 23:59:59 Albin [place]alta [id number] 08/28/2017 08/28/2017 CLS Outpatient Ever, 08:45:00 23:59:59 Albin [place]alta [id number] 08/22/2017 08/22/2017 CLS Outpatient Ever, 08:19:00 23:59:59 Albin [place]alta [id number] 08/18/2017 08/18/2017 CLS Outpatient Thorne, 14:45:00 23:59:59 Maya Cuenca [id number] 07/31/2017 07/31/2017 CLS Outpatient Ever, 09:00:00 23:59:59 Albin [place] [id number] 07/17/2017 07/17/2017 CLS Outpatient Ever, 08:40:00 23:59:59 Albin [place]alta [id number] 07/03/2017 07/03/2017 CLS Outpatient Ever, 15:00:00 23:59:59 Albin Villalta [id number] 06/06/2017 06/06/2017 CLS Outpatient Ever, 15:30:00 23:59:59 Albin [place] [id number] 05/08/2017 05/08/2017 CLS Outpatient Ever, 09:15:00 23:59:59 Albin Villalta [id number] 05/08/2017 05/08/2017 CLS Outpatient Ever, 08:45:00 23:59:59 Albin Villalta [id number] 04/17/2017 04/17/2017 CLS Outpatient Ever, 08:30:00 23:59:59 Albin Villalta [id number] 03/25/2017 03/25/2017 CLS Outpatient Ever, 16:15:00 23:59:59 Albin Villalta [id number] 02/27/2017 02/27/2017 CLS Outpatient Ever, 08:41:00 23:59:59 Albin Villalta [id number] 02/25/2017 02/25/2017 CLS Outpatient Ever, 10:15:00 23:59:59 Albin Villalta [id number] 01/02/2017 01/02/2017 CLS Outpatient Ever, 20:48:00 23:59:59 Albin Villalta [id number] 12/20/2016 12/20/2016 CLS Outpatient Ever, 08:30:00 23:59:59 Albin Villalta [id number] 12/13/2016 12/13/2016 CLS Outpatient Ever, 15:30:00 23:59:59 Albin Villalta [id number] 11/18/2016 11/18/2016 CLS Outpatient Ever, 08:28:00 23:59:59 Albin Villalta [id number] 11/08/2016 11/08/2016 CLS Outpatient Ever, 11:06:00 23:59:59 Albin Villalta [id number] 11/05/2016 11/05/2016 CLS Outpatient Ever, 15:15:00 23:59:59 Albin Villalta [id number] 08/12/2016 08/12/2016 CLS Outpatient Ever, 22:23:00 23:59:59 Albin Villalta [id number] 08/06/2016 08/06/2016 CLS Outpatient Ever, 15:45:00 23:59:59 Albin Villalta [id number] 06/20/2015 06/20/2015 CLS Outpatient Ever, 10:46:00 23:59:59 Albin Villalta [id number] 06/13/2015 06/13/2015 CLS Outpatient Ever, 15:45:00 23:59:59 Albin Villalta [id number] 09/12/2017 Document 14:00:00 Registration [id number] 08/06/2016 Document 15:54:49 Registration
--- OUTSIDE RECORDS SUMMARY | 2017-09-16 15:39 | External Medical Summary | Continuity of Care Document ---
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) (routine) w abnormal findings [...] third trimester 29 weeks gestation of - Active Procedures Procedure Date OB Visit No Charge Hemoglobin count, colorimetric Hematocrit blood count Glucose test Venpnctr fngr/heel/ear stick routne Results Test Name Date and Time Measure Units Reference Range Abnormal Flag Comments Panel Description: Glucose [Mass/volume] in Serum or Plasma --1 hour post 50 g glucose PO GLUCOSE, 136 mg/dL <140 N Test performed at [facility] GESTATIONAL SCREEN 16:05:00 DIAGNOSTICS [id number] (50G)-[address] [place] [address]Rdfptypz: RAMON BORJA DO,MPH Panel Description: HEMOGLOBIN + HEMATOCRIT HEMOGLOBIN 16:05:00 11.6 g/dL 11.7-15.5 L HEMATOCRIT 16:05:00 33.9 % 35.0-45.0 L REPORT COMMENT:FASTING :NOTest performed at [facility] [id number] [place] [address]Kzhbspzu: RAMON BORJA DO,MPH Advance Directives Directive Yes / No Effective Date File Name Unknown Encounters Encounter Practice Location Reason(s) Diagnoses Date Provider Care Team Description For Visit Members Ninfa Mcwilliams Encounter for Ever Referring In Womens suprvsn of normal 4-201 [place]. 700 Provider: Health PA, , third 7 Medical [place] PO Box [email or web address] weeks Center Ever R, 1522, gestation of [place] Riley, 120, [facility] [id number], [place], [place] 120, [place] [id number] Oj, tel:+ , [place]. [place], tel: [phone]. [id number] tel:[phone] Ninfa Mcwilliams Encounter for Nov-3 Ever Referring In Womens suprvsn of normal 0-201 [place]. 700 Provider: Health PA, , second 7 Medical [place] PO Box [id number] weeks Center Ever R, 1522, gestation of [place] Riley, 120, Medical [facility] [id number], [place], [place] 120, [place] [id number] Oj, tel:+ , [place]. [place], tel: [phone]. [id number] tel:[phone] Ninfa Mcwilliams Encounter for Nov-0 Ever Referring In Womens suprvsn of normal 3-201 [place]. 700 Provider: Health LINSEY, , second 7 Medical [place] PO Box [email or web address] weeks Center Ever R, 1522, gestation of [place] Riley, 120, Medical [facility] [id number], [place], [place] 120, [place] [id number] Oj, tel: , [place]. [place], tel: [phone]. [id number] tel:[phone] Ninfa Mcwilliams Encounter for Oct-0 Ever Referring In Womens suprvsn of normal 5-201 [place]. 700 Provider: Health PA, , second 7 Medical [place] PO Box [email or web address] weeks Center Ever R, 1522, gestation of [place] Riley, 120, Medical [facility] [id number], [place], [place] 120, [place] [id number] Oj, tel:+ , [place]. [place] tel: [phone]. [id number] tel:[phone] Ninfa Mcwilliams Encounter for Oct-0 Ever Referring In Womens Ultrasound suprvsn of normal 5-201 [place]. 700 Provider: Health PA, , second 7 Medical [place] PO Box trimesterEncounte Center Ever R, 1522, r For [place]gy Riley, Screening For 120, Medical [place], [id number] [facility] [id number], weeks gestation PITA [place] 120, [place] of [id number] Oj, tel: , [place]. [place], tel: [phone]. [id number] tel:[phone] Ninfa Mcwilliams Encounter for Sep-1 Ever Referring In Womens suprvsn of normal 4-201 [place]. 700 Provider: Health PA, , second 7 Medical [facility] Box [email or web address] weeks Center Ever R, 1522, gestation of Ziggy Riley, 120, Medical [facility] [id number], [place], [place] 120, [place] [id number] Oj, tel: , [place]. [place], tel: [phone]. [id number] tel:[phone] Ninfa Mcwilliams Encounter for Aug-2 Ever Referring In Womens suprvsn of normal 2-201 [place]. 700 Provider: Health LINSEY, , first 7 Medical [facility] Box [id number] weeks Center Ever R, 1522, gestation of [place]gy Riley, 120, Medical [facility] [id number], [place], [place] 120, [place] [id number] Oj, tel: , [place]. [place], tel: [phone]. [id number] tel:[phone] Ninfa Mcwilliams Other viral Renny-2 Ever Referring In Womens diseases 5-201 [place]. 700 Provider: Health LINSEY, complicating 7 Medical [facility] Box , first Center Ever R, 1522, trimesterEncntr [place] Riley, screen for 120, Medical [place], infections w sexl Oj [place] [id number], mode of [place], [place]gy 120, [place] transmissEncounte [id number] Oj, tel: r for screening , [place]. [place], for oth tel: [phone]. infec/parastc [id number] tel: diseasesEncounter [phone] for test, result positiveEncounter for suprvsn of normal , first trimesterEncounte r for screening of mother9 weeks gestation of Associates Oj Irregular Menses May-1 Ever Referring In Womens 2- [place]. 700 Provider: Van STILES, 7 [facility] PO Box Center Ever R, 1522, , [place]ig[place] Kim Bertrand, 120, Medical O[facility] [id number], [place], [facility] 120, [place] [id number] Oj, tel: , [place]. [place] tel: [phone]. [id number] tel:[phone] Associates Oj Irregular Menses Apr-0 Ever In Womens 7- [place]. 700 Van STILES, 7 [facility] PO Box Center 1522, Z[place]gy Riley, 120, Oj LEMA, [id number], [place], [place] [id number] tel: , [place]. tel: [phone] Ninfa Mcwilliams HirsutismIrregula Apr-0 Ever Referring In Womens r Menses 4- [place]. 700 Provider: Van STILES, 7 [facility] Box [place] Ever R, 1522, , [place]ig[place] Kim Bertrand, 120, Medical [place] [facility] [id number], [place], [facility] 120, [place] [id number] Oj, tel: , [place]. [place], tel: [phone]. [id number] tel:[phone] Associates Oj PalpitationsEncnt Roderick-0 Ever Referring In Womens r for cardiograph operator exam 3-201 [place]. 700 Provider: Van STILES, (general) 7 [facility] Box (routine) w Center Ever R, 1522, abnormal findings Dr [place] Kim Bertrand, 120, Medical O[facility] [id number], [place], [facility] 120, [place] [id number] Oj, tel: , [place]. [place] tel: [phone]. [id number] tel:[phone] Associates Oj Encntr for cardiograph operator Nov-1 Ever Referring In Womens exam (general) 0-201 [place]. 700 Provider: Van STILES, (routine) w/o abn 5 Medical [place] PO Box findings Center Ever R, 1522, Dr, [place]iggy 700 [place], 120, Medical [facility] [id number], [place], [facility] 120, [place] [id number] Oj, tel: , [facility] PITA, tel: [phone]. [id number] tel:[phone] Ninfa Mcwilliams Feb-2 Ever Referring In Womens 0-201 [place]. 700 Provider: Van STILES, 4 Medical [place] PO Box Center [address], [place] 700 [place], 120, Medical [facility] [id number], [place], [facility] 120, [place] [id number] Oj, tel: , [facility] PITA, tel: [phone]. [id number] tel:[phone] Family History Family Member Diagnosis Age At Onset Mother Diabetes mellitus Paternal Grandfather Cardiovascular Disease Maternal Grandfather Cardiovascular Disease Immunizations Vaccine Date Status Comments Unknown Payers Payer name Insurance type Covered libertarian ID Authorization(s) DAYAN LEMA [id number] Social History Type Description Quantity Date Captured Alcohol Use Details No Caffeine Use Details Unknown Tobacco Use Status Unknown Smoking Status Never smoker Vital Signs Date / Height Weight BMI Pulse Blood Temperature Respiratory Body Head BMI Time: Rate Pressure Rate Surface Circumference percentile Area 190.50 38.4 125/77 2017 lbs 7 mm[Hg] 3:03 kg/m PM eter (2) Chief Complaint And Reason For Visit Unknown Chief Complaint And Reason For Visit Reason For Referral Reason For Referral Unknown Plan Of Care Date Type Action Status Appointment Sierra Huitron BOOKED Future Order: Lab Order Pap Smear With HPV Reflex If ASCUS Ordered ([id number]) Future Order: Radiology Order Complete OB Ultrasound > 14 Ordered Weeks ([id number]) Date Type Problem Goal Intervention Status Start [...]
--- OUTSIDE RECORDS SUMMARY | 2017-09-16 15:39 | External Medical Summary | Continuity of Care Document ---
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 700 Provider: Van STILES, , second 7 Medical [facility] Box [id number] weeks Center Ever R, 1522, gestation of [place]ig[place] Riley, 120, Medical [facility] [id number], [place], [facility] 120, [place] [id number] Oj, tel: , . [place], tel: [phone]. [id number] tel:[phone] Ninfa Mcwilliams Encounter for Oct-0 Ever Referring In Womens suprvsn of normal 5-201 [place]. 700 Provider: Van STILES, , second 7 Medical [facility] Box [id number] weeks Center Ever R, 1522, gestation of Ziggy Riley, 120, Medical Oj [facility] [id number], [place], [facility] 120, [place] [id number] Oj, tel: , [facility], tel: [phone]. [id number] tel:[phone] Ninfa Mcwilliams Encounter for Oct-0 Ever Referring In Womens Ultrasound suprvsn of normal 5-201 [place]. 700 Provider: Van STILES, , second 7 Medical [place] PO Box trimesterEncounte Center Ever R, 1522, r For [place] Riley, Screening For 120, Medical [place], [id number] [facility] [id number], weeks gestation [place], [facility] 120, [place] of [id number] Oj, tel: , [place]. [place], tel: [phone]. [id number] tel:[phone] Ninfa Mcwilliams Encounter for Sep-1 Ever Referring In Womens suprvsn of normal 4-201 [place]. 700 Provider: Health LINSEY, , second 7 Medical [place] PO Box [id number] weeks Center Ever R, 1522, gestation of Dr [facility] Kim Bertrand, 120, Medical [place], [facility] [id number], [place], [place] 120, [place] [id number] Oj, tel: , [place]. [place], tel:[phone]. [id number] tel:[phone] Ninfa Mcwilliams Encounter for Aug-2 Ever Referring In Womens suprvsn of normal 2-201 [place]. 700 Provider: Van STILES, , first 7 Medical [facility] Box [id number] weeks Center Ever R, 1522, gestation of Dr [facility] Kim Bertrand, 120, Medical [place], [facility] [id number], [place], [facility] 120, [place] [id number] Oj, tel: , [place]. [place], tel:[phone]. [id number] tel:[phone] Ninfa Mcwilliams Other viral Renny-2 Ever Referring In Womens diseases 5-201 [place]. 700 Provider: Van STILES, complicating 7 Medical [place] PO Box , first Center Ever R, 1522, trimesterEncntr Dr [facility] Kim Bertrand, screen for 120, Medical [place], infections w sexl [facility] [id number], mode of [place], [facility] 120, [place] transmissEncounte [id number] Oj, tel: r for screening , [place]. [place], for oth tel:[phone]. infec/parastc [id number] tel: diseasesEncounter [phone] for test, result positiveEncounter for suprvsn of normal , first trimesterEncounte r for screening of mother9 weeks gestation of Ninfa Mcwilliams Irregular Menses May-1 Ever Referring In Womens 2-201 [place]. 700 Provider: Van STILES, 7 [facility] Box [place] Ever [place], 1522, [place] Riley, 120, Medical Oj [facility] [id number], [place], [facility] 120, [place] [id number] Oj, tel: , [place]. [place], tel: [phone]. [id number] tel:[phone] Associates Oj Irregular Menses Apr-0 Ever In Womens 7-201 [place]. 700 Health LINSEY, 7 [facility] Box Center 1522, [place] Riley, 120, Oj LEMA, [id number], [place], [id number] tel: , [place]. tel: [phone] Associates Oj HirsutismIrregula Apr-0 Ever Referring In Womens r Menses 4-201 [place]. 700 Provider: Van STILES, 7 [facility] vEer [place] 152Anette, [place] Riley, 120, Medical Oj [facility] [id number], [place], [facility] 120, [place] [id number] Oj, tel: , [place]. [place], tel: [phone]. 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 700 Provider: Health LINSEY, (general) 7 [facility] Box (routine) w Center Ever [place], 1522, abnormal findings [place] Riley, 120, Medical Oj [facility] [id number], [place], [facility] 120, [place] [id number] Oj, tel: , [place]. [place], tel: [phone]. 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 700 Provider: Health LINSYE, (routine) w/o abn 5 [facility] findings [place] Ever [place], 1522, Z[place]gy Riley, 120, Medical jO [facility] [id number], [place], [facility] 120, [place] [id number] Oj, tel: , . PITA, tel: [phone]. [id number] tel:[phone] Ninfa Mcwilliams Ever Referring In Womens 0-201 [facility] 700 Provider: [facility], 4 [facility] Chuyita Mitchell2Dr, Ziggy 700 [place], 120, [facility] [id number], [place], [facility] 120, [id number] Oj, tel: , [facility], tel: [phone]. [id number] tel:[phone] Family History Family Member Diagnosis Age At Onset Mother Diabetes mellitus Paternal Grandfather Cardiovascular Disease Maternal Grandfather Cardiovascular Disease Immunizations Vaccine Date Status Comments Unknown Payers Payer name Insurance type Covered libertarian ID Authorization(s) [facility] [id number] Social History Type Description Quantity Date Captured Alcohol Use Details No Caffeine Use Details Unknown Tobacco Use Status Unknown Smoking Status Never smoker Vital Signs Date / Height Weight BMI Pulse Blood Temperature Respiratory Body Head BMI Time: Rate Pressure Rate Surface Circumference percentile Area 188.90 38.1 lbs 5 mm[Hg] 3:42 kg/m PM eter (2) Chief Complaint And Reason For Visit Unknown Chief Complaint And Reason For Visit Reason For Referral Reason For Referral Unknown Plan Of Care Date Type Action Status Appointment Sierra Huitron BOOKED Future Order: Lab Order Pap Smear With HPV Reflex If ASCUS Ordered ([id number]) Future Order: Radiology Order Complete OB Ultrasound > 14 Ordered Weeks ([id number]) Date Type Problem Goal Intervention Status Start [...]
--- OUTSIDE RECORDS SUMMARY | 2017-09-16 15:39 | External Medical Summary | Continuity of Care Document ---
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 Provider: Van STILES, umbilical cord, 8 700 [place] PO Box [facility] Medical Ever R, 1522, [facility] 700 [place], alda for suprvsn of Ziggy Riley, normal , 120, Center [id number], third [id number] [place]iggy Mcwilliams 120, [place] weeks gestation Oj LEMA, tel: of [phone] PITA [id number] , [place]. [id number]. tel: tel: [phone] Ninfa Mcwilliams Encounter for Jul- Ever Referring In Womens suprvsn of normal 8-201 [place]. 700 Provider: Van STILES, , third 7 Medical [place] PO Box [id number] weeks Center Ever [place], 1522, gestation of Ziggy Rileyta, 120, Medical Oj [facility] [id number], [place], [facility] 120, [place] [id number] Oj, tel: , [place]. [place], tel: [phone]. [id number] tel:[phone] Ninfa Mcwilliams Encounter for Dec-1 Ever Referring In Womens suprvsn of normal 4-201 [place]. 700 Provider: Health PA, , third 7 Medical [place] PO Box [id number] weeks Center Ever R, 1522, gestation of Ziggy Riley, 120, Medical Oj [facility] [id number], [place], [facility] 120, [place] [id number] Oj, tel: , [place]. [place], tel: [phone]. [id number] tel:[phone] Ninfa Mcwilliams Encounter for Nov-3 Ever Referring In Womens suprvsn of normal 0-201 [place]. 700 Provider: Health LINSEY, , second 7 Medical [place] PO Box [id number] weeks Center Ever R, 1522, gestation of Ziggy Riley, 120, Medical Oj [facility] [id number], [place], [facility] 120, [place] [id number] Oj, tel: , [place]. [place], tel: [phone]. [id number] tel:[phone] Ninfa Mcwilliams Encounter for Nov-0 Ever Referring In Womens suprvsn of normal 3-201 [place]. 700 Provider: Health LINSEY, , second 7 Medical [place] PO Box [id number] weeks Center Ever R, 1522, gestation of Ziggy Riley, 120, Medical Oj [facility] [id number], [place], [facility] 120, [place] [id number] Oj, tel: , [place]. [place], tel: [phone]. [id number] tel:[phone] Ninfa Mcwilliams Encounter for Oct-0 Ever Referring In Womens suprvsn of normal 5-201 [place]. 700 Provider: Health LINSEY, , second 7 Medical [place] PO Box [email or web address] weeks Center Ever R, 1522, gestation of Ziggy Riley, 120, Medical Oj [facility] [id number], [place], [place] 120, [place] [id number] Oj, tel:+ , [place]. [place], tel: [phone]. [id number] tel:[phone] Ninfa Mcwilliams Encounter for Oct-0 Ever Referring In Womens Ultrasound suprvsn of normal 5-201 [place]. 700 Provider: Health LINSEY, , second 7 Medical [place] PO Box trimesterEncounte Center Ever R, 1522, r For [place] Riley, Screening For 120, Medical [place], [id number] [facility] [id number], weeks gestation PITA, [facility] 120, [place] of [id number] Oj, tel: , [place]. [place], tel: [phone]. [id number] tel:[phone] Ninfa Mcwilliams Encounter for Sep-1 Ever Referring In Womens suprvsn of normal 4-201 [place]. 700 Provider: Health LINSEY, , second 7 Medical [place] PO Box weeks Center Ever R, 1522, gestation of Ziggy Riley, 120, Medical Oj [facility] [id number], [place], [place] 120, [place] [id number] Oj, tel: , [place]. [place], tel: [phone]. [id number] tel:[phone] Ninfa Mcwilliams Encounter for Aug-2 Ever Referring In Womens suprvsn of normal 2-201 [place]. 700 Provider: Health LINSEY, , first 7 Medical [place] PO Box weeks Center Ever R, 1522, gestation of Ziggy Riley, 120, Medical Oj [facility] [id number], [place], [place] 120, [place] [id number] Oj, tel: , [place]. [place], tel: [phone]. [id number] tel:[phone] Ninfa Mcwilliams Other viral Renny-2 Ever Referring In Womens diseases 5-201 [place]. 700 Provider: Van STILES, complicating 7 Medical [place] PO Box , first Center Ever R, 1522, trimesterEncntr [place] Kim Bertrand, screen for 120, Medical [place], infections w sexl [facility] [id number], mode of [place], [place] 120, [place] transmissEncounte [id number] Oj, tel: r for screening , [place]. [place], for oth tel: [phone]. infec/parastc [id number] tel: diseasesEncounter [phone] for test, result positiveEncounter for suprvsn of normal , first trimesterEncounte r for screening of mother9 weeks gestation of Associates Oj Irregular Menses December-1 Ever Referring In Womens 2-201 [place]. 700 Provider: Van STILES, 7 [facility] Ever [place], 1522, Dr [facility] Kim Bertrand, 120, Medical Oj [facility] [id number], [place], [facility] 120, [place] [id number] Oj, tel: , [place]. [place], tel: [phone]. [id number] tel:[phone] Associates Oj Irregular Menses Apr-0 Ever In Womens 7-201 [place]. 700 Van STILES, 7 [facility] 1522, [place] Riley, 120, Oj LEMA [id number], [place], [place] [id number] tel: , [place]. tel: [phone] Associates Oj HirsutismIrregula Apr-0 Ever Referring In Womens r Menses 4-201 [place]. 700 Provider: Van STILES, 7 [facility] Ever [place], 1522, Dr [facility] Kim Bertrand, 120, Medical Oj [facility] [id number], [place], [place] 120, [place] [id number] Oj, tel: , [place]. [place], tel: [phone]. 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 700 Provider: Van STILES, (general) 7 [facility] (routine) w Center Ever [place], 1522, abnormal findings [facility] Kim Bertrand, 120, Medical Oj [facility] [id number], [place], [facility] 120, [id number] Oj, tel: , [facility] PITA, tel: [phone]. 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 700 Provider: Van STILES, (routine) w/o abn 5 Medical [place] PO Box findings Center [address], [place] 700 [place], 120, Medical Oj [facility] [id number], [place], [facility] 120, [id number] Oj, tel: , . [place], tel: [phone]. [id number] tel:[phone] Ninfa Mcwilliams Ever Referring In Womens 0-201 [place]. 700 Provider: Van STILES, 4 Medical [place] PO Box Center [address], [facility] 700 [place], 120, Medical Oj [facility] [id number], [place], [facility] 120, [id number] Oj, tel: , [facility], tel: [phone]. [id number] tel:[phone] Family History Family Member Diagnosis Age At Onset Mother Diabetes mellitus Paternal Grandfather Cardiovascular Disease Maternal Grandfather Cardiovascular Disease Immunizations Vaccine Date Status Comments Tdap completed Source: New Immunization Record Payers Payer name Insurance type Covered alliance party ID Authorization(s) [facility] [id number] [facility] [id number] Social History Type Description Quantity Date Captured Alcohol Use Details No Caffeine Use Details Unknown Tobacco Use Status Unknown Smoking Status Never smoker Vital Signs Date / Height Weight BMI Pulse Blood Temperature Respiratory Body Head BMI Time: Rate Pressure Rate Surface Circumference percentile Area 194.50 39.2 lbs 8 mm[Hg] 9:13 kg/m AM eter (2) Chief Complaint And [...] Complete OB Ultrasound > 14 Ordered Weeks ([id number]) Date Type Problem Goal Intervention Status Start [...]
[2017-09-16] MEDS ORDERED: ACETAMINOPHEN 500 MG TABLET PO PRN ×2 (16:15→20:36)
[2017-09-16] MEDS ORDERED: MAG-AL + SIM ORAL LIQUID 30ml PO PRN ×2 (16:15→20:36)
[2017-09-16] MEDS ORDERED: METHYLERGONOVINE 0.2 MG/ML INJECTION IM PRN (16:15)
[2017-09-16] MEDS ORDERED: CARBOPROST 250 MCG/ML INJECTION IM PRN (16:15)
[2017-09-16] MEDS ORDERED: CALCIUM CARBONATE Chewable 500mg TABLET PO PRN ×2 (16:15→20:36)
[2017-09-16] MEDS ORDERED: LR 1,000 ML IV PRN (16:15)
--- OUTSIDE RECORDS SUMMARY | 2017-09-16 16:23 | External Medical Summary | Continuity of Care Document ---
[...] Procedures Code Description [place] [address] Ultrasnd 05/08/2017 exam of preg uterus, compl 54199 OB Visit No 08/18/2017 Charge [id number] Ultrasnd 08/28/2017 preg uterus, flwup/repeat Results There is no data. Encounters ACCT No. Visit Discharge Status Pt. Type Provider Facility Loc./Unit Complaint Date/Time [id number] 09/05/2017 09/05/2017 [facility] Outpatient [facility], 14:00:00 23:59:59 Albin Villalta [id number] 08/28/2017 08/28/2017 CLS Outpatient [facility], 09:00:00 23:59:59 Albin Villalta [id number] 08/28/2017 08/28/2017 CLS Outpatient Ever, 08:45:00 23:59:59 Albin Villalta [id number] 08/22/2017 08/22/2017 CLS Outpatient Ever, 08:19:00 23:59:59 Albin Villalta [id number] 08/18/2017 08/18/2017 CLS Outpatient [facility], 14:45:00 23:59:59 Maya Cuenca [id number] 07/31/2017 07/31/2017 CLS Outpatient Ever, 09:00:00 23:59:59 Albin Villalta [id number] 07/17/2017 07/17/2017 CLS Outpatient Ever, 08:40:00 23:59:59 Albin Villalta [id number] 07/03/2017 07/03/2017 CLS Outpatient Ever, 15:00:00 23:59:59 Albin Villalta [id number] 06/06/2017 06/06/2017 CLS Outpatient Ever, 15:30:00 23:59:59 Albin Villalta [id number] 05/08/2017 05/08/2017 CLS Outpatient Ever, 09:15:00 23:59:59 Albin Villalta [id number] 05/08/2017 05/08/2017 CLS Outpatient Ever, 08:45:00 23:59:59 Albin Villalta [id number] 04/17/2017 04/17/2017 CLS Outpatient Ever, 08:30:00 23:59:59 Albin Villalta [id number] 03/25/2017 03/25/2017 CLS Outpatient Ever, 16:15:00 23:59:59 Albin Villalta [id number] 02/27/2017 02/27/2017 CLS Outpatient Ever, 08:41:00 23:59:59 Albin Villalta [id number] 02/25/2017 02/25/2017 CLS Outpatient Ever, 10:15:00 23:59:59 Albin Villalta [id number] 01/02/2017 01/02/2017 CLS Outpatient Ever, 20:48:00 23:59:59 Albin Villalta [id number] 12/20/2016 12/20/2016 CLS Outpatient Ever, 08:30:00 23:59:59 Albin Villalta [id number] 12/13/2016 12/13/2016 CLS Outpatient Ever, 15:30:00 23:59:59 Albin Villalta [id number] 11/18/2016 11/18/2016 CLS Outpatient Ever, 08:28:00 23:59:59 Albin Villalta [id number] 11/08/2016 11/08/2016 CLS Outpatient Ever, 11:06:00 23:59:59 Albin Villalta [id number] 11/05/2016 11/05/2016 CLS Outpatient Ever, 15:15:00 23:59:59 Albin Villalta [id number] 08/12/2016 08/12/2016 CLS Outpatient Ever, 22:23:00 23:59:59 Albin Villalta [id number] 08/06/2016 08/06/2016 CLS Outpatient Ever, 15:45:00 23:59:59 Albin Villalta [id number] 06/20/2015 06/20/2015 CLS Outpatient Ever, 10:46:00 23:59:59 Albin Villalta [id number] 06/13/2015 06/13/2015 CLS Outpatient Ever, 15:45:00 23:59:59 Albin Villalta [id number] 09/12/2017 Document 14:00:00 Registration [id number] 08/06/2016 Document 15:54:49 Registration
[2017-09-16] MEDS ORDERED: CEFAZOLIN PREMIX (MC ONLY) 2 GM/50 ML BAG IV ONE (16:30)
--- NOTE | 2017-09-16 16:41 | Anesthesia Preoperative Report ---
Anesthesia Epidural/Spinal Rec - Date and Time Date: 09/16/17 Procedure: Labor Epidural Plan: Epidural - Vital Signs /Para: P:1 - Medictaions & Allergies Allergies/Adverse Reactions: Allergies Allergy/AdvReac Type Severity Reaction Status Date / Time codeine AdvReac Intermediate STOMACH Verified 12/17/13 11:18 ACHE - Home Medications Home Medications: Home Medications Medication Instructions Recorded Confirmed Type Docosahexanoic Acid [ Dha] 1 cap PO BID #0 cap 12/08/14 History - Medical History Respiratory: DENIES: Asthma, Bronchitis, Chronic Obstructive Pulmonary Disease (COPD), Dyspnea, Orthopnea, Pulmonary Embolism, Pneumonia, Upper Respiratory Infection, Pulmonary Edema, Sleep Apnea, Tuberculosis, Other Cardiovascular: DENIES: Abnormal EKG, Angina, Arrhythmia, Congestive Heart Failure, Coronary Artery Disease, Heart Murmur, Hypertension, Hypotension, High Cholesterol, Myocardial Infarction, Rheumatic Fever, Valvular Heart Disease, Other Gastrointestional: Reports: Gastroesophageal Reflux Disease DENIES: Obstructive Bowel, Hepatitis, Cirrhosis, Nausea or Vomiting Present, Gastrointestinal Bleeding, Hiatal Hernia, Ulcer, Morbid Obesity, Other Neuro/Musculoskeletal: Denies: HX.MS.OSAR, Back Problems, Cerebrovascular Accident, Depression, Headaches, Loss of Consciousness, Muscle Weakness, Neuromuscular Disorder, Paralysis, Paresthesia, Syncope, Seizures, Other Renal/Endocrine: DENIES: Diabetes Mellitus Type 1, Diabetes Mellitus Type 2, Renal Failure, Dialysis, Thyroid Disease, Weight Loss, Weight Gain, Other Other History: Reports: Now - Surgical History Reproductive Surgery/Treatment: Reports: Other (D & C) Anesthesia Reactions: None - Social History Smoking Status: Never smoker Second Hand Exposure: No Substance Use Type: does not use Alcohol Intake Frequency: does not drink Hx Chewing Tobacco Use: No - Physical Exam Respiratory Exam: lungs clear, bilateral breath sounds equal Cardiovascular Exam: regular rate and rhythm, no murmur - Airway Assessment Mallampati Score: I TMD: 3 Fingerbreadths Overall Assessment: may be difficult mask vent, may be difficult intubation - ASA ASA Score: 2 - Discussion Discussion: Discussed risks/options/alternatives of anesthesia and questions answered. Patient consents. Nursing pain assessment noted. Anesthesia Discussion: spouse Attestation Statement: Prior to the delivery of any anesthetic medication, I examined the patient, developed the plan, obtained the patient's consent and discussed the risk and benefits of the procedure with the patient/guardian.
[2017-09-16] MEDS ORDERED: DiphenhydrAMINE 50 MG/ML INJECTION IVP PRN (16:42)
[2017-09-16] MEDS ORDERED: NALOXONE 0.4 MG/ML INJECTION IVP PRN (16:42)
[2017-09-16] MEDS ORDERED: ONDANSETRON 4 MG/2 ML INJECTION IVP PRN (16:42)
[2017-09-16] MEDS ORDERED: ROPIVACAINE 1% 10MG/ML INJ 200 MG, SUFentanil 50 MCG in NS 100 ML EPI PRN (16:42)
[2017-09-16] MEDS: OXYTOCIN DRIP 30 UNIT/500 ML ML IV SCH (18:02)
--- NOTE | 2017-09-16 19:37 | Labor and Delivery Note ---
DATE OF DELIVERY: 09/16/2017 PREOPERATIVE DIAGNOSES 1. 32-year-old white female, G3, P1, at 38.4 weeks gestational age. 2. Spontaneous labor. 3. Epidural anesthesia. 4. Artificial rupture of membranes. 5. GBS prophylaxis. 6. Spontaneous vaginal delivery. 7. Male infant, 3223 g, Apgars (7 pounds 1.7 ounces)(Mario Iverson). BRIEF DESCRIPTION This is a patient of mine who came in in spontaneous labor around 3:30 this afternoon. I checked her cervix at 4 p.m. and she was 3.5 cm. At 5:30 she was 4.5 cm and had received her epidural block. She had received a dose of Kefzol IV for GBS prophylaxis. It was originally meant to be ampicillin but cefazolin was given in error (but still has coverage). I performed AROM and it was clear. The patient then rapidly progressed in labor and had a strong urge to push. She was uncomfortable with her block and we called Anesthesia back in to dose it up but she delivered prior to their arrival. The patient pushed for only three or four contractions and had a spontaneous vaginal delivery from the OA presentation. The infant was bulb suctioned after delivery of the head and then again after delivery of the body. The cord was doubly clamped and cut after draining for about a minute and a half. The 's father cut the cord. The infant was initially placed on the mother's abdomen. He later went to the isolette and Dr. Spring checked him out. The placenta had a velamentous cord insertion and was sent to Pathology. It delivered spontaneously. The perineum was intact. EBL was 200 mL. The patient has a history of HSV but no lesion seen today and no recent outbreaks reported by the patient. She was GBS positive and received one dose of prophylaxis. Rubella was nonimmune so will order an MMR . Maternal blood type is O-positive. At time of dictation mother and are doing well. [facility]
[2017-09-16] MEDS ORDERED: HYDROCODONE/APAP 5mg/325mg TABLET PO PRN (20:36)
[2017-09-16] MEDS ORDERED: DiphenhydrAMINE 25 MG CAPSULE PO PRN (20:36)
[2017-09-16] MEDS ORDERED: BENZOCAINE 20% SPRAY 0.5 ML MM ONE (20:36)
[2017-09-16] MEDS ORDERED: HYDROCORTISONE 2.5% CREAM 30gm RECTALLY PRN (20:36)
[2017-09-16] MEDS ORDERED: MEASLES-MUMPS-RUBELLA VACCINE 0.5ml INJECTION SQ ONE (20:36)
[2017-09-16 23:18] VITALS: BMI 41.1
[2017-09-17] MEDS ORDERED: CEFAZOLIN 1 G in NS 50 ML IV SCH (00:30)
--- NOTE | 2017-09-17 08:10 | OB/GYN Progress Note ---
OB-PP Progress Note - General PPD1 Maternal Group B Strep: Positive - Subjective Date: 09/17/17 Lochia: Moderate Pain: controlled (Has not taken any pain meds at this time. Minimal cramping.) Voiding: voiding Nausea or Vomiting Present: No - Objective Vital Signs: Last Vital Signs Temp 98.4 F 09/17/17 06:00 Pulse 92 09/17/17 06:00 Resp 16 09/17/17 06:00 BP 117/78 09/17/17 06:00 Urine Output: good General: alert and oriented Abdomen: fundus firm Extremities: non-tender Laboratory: Laboratory Results - last 24 hr 09/16/17 09/17/17 16:29 06:12 WBC 10.7 16.7 H D RBC 4.19 3.87 L Hgb 12.6 11.6 L Hct 37.6 34.7 L MCV 89.7 89.7 MCH 30.1 30.0 MCHC 33.5 33.4 RDW Std Deviation 43.1 42.6 Plt Count 340 289 MPV 10.1 10.1 - Assessment Assessment: - Plan Plan: routine care
[2017-09-17] MEDS: IBUPROFEN 800 MG TABLET PO PRN ×2 (09:58→21:24)
[2017-09-17] MEDS: DOCUSATE CALCIUM 240 MG CAPSULE PO SCH (09:58)
--- NOTE | 2017-09-17 11:28 | OB/GYN Progress Note ---
OB-Progress Note Free Text - Date Date: 09/17/17 - Progress Note Progress Note: vss af no c/o q&a re MMR cont care path
--- NOTE | 2017-09-17 22:01 | Anesthesia Postoperative Note ---
- Date and Time Date: 09/17/17 Time: 22:00 - Status Patient Participated in Evaluation: Patient Participated in Person Vital Signs: Temperature 97.9 F 09/17/17 15:15 Pulse Rate 84 09/17/17 15:15 Respiratory Rate 18 09/17/17 15:15 Blood Pressure 119/67 09/17/17 15:15 Pulse Oximetry 98 09/17/17 15:15 Respiratory Function: Airway Patent Cardiovascular Function: Regular Pulse EKG: Sinus Rhythm Mental Status: Alert and Oriented Pain Intensity: 2 Hydration: Taking PO Fluids Complications During Recover: None Apparent - Follow-Up Instructions Instructions: Per Surgeon
[2017-09-18] MEDS: OXYTOCIN DRIP 30 UNIT/500 ML ML IV SCH ×2 (01:38→01:39)
--- NOTE | 2017-09-18 07:54 | Progress Note ---
OB PP Progress Note Free Text - Date Date: 09/18/17 - Progress Note Progress Note: doing well vss af no c/o dc today instructions reviewed q&a-krb
[2017-09-18] MEDS: DOCUSATE CALCIUM 240 MG CAPSULE PO SCH (09:25)
[2017-09-18 14:01] VITALS: RESP 16
[2017-09-18 16:28] VITALS: BP 115/66; PULSE 84; TEMP 97.5; O2SAT 99
== END 2017-09-18 19:23 | disposition home or self-care (01) | DRG 774 ==
LOC: OBOBS 15:31 → MC 15:34 → SRG 16:15 → MC 21:00
PROVIDERS: ADMIT Obstetrics & Gynecology; ATTEND Obstetrics & Gynecology